=== PATIENT | male | born 1980 | race American Indian/Alaskan Native ===

== ENCOUNTER 2017-11-22 00:19 | Emergency (ER) | payer BC ==
[2017-11-22 00:34] VITALS: BMI 27.3
[2017-11-22 00:36] VITALS: O2SAT 98
--- NOTE | 2017-11-22 02:28 | ED PDOC ---
Arrival/HPI - General Chief Complaint: Cough, Cold, Congestion Time Seen by Provider: 11/22/17 00:37 Historian: Patient - History of Present Illness Narrative History of Present Illness (Text): 11/22/17 02:20 37 year old male, with no known past medical history, presents to the emergency department complaining of coughing associated with vomiting. Patient reports the cough for several months and seen his PMD twice in the past week. Patient was given antibiotics and steroids with moderate improvement. Patient reports the cough returned with vomiting x2 today, once with reportedly slight blood, and diarrhea for several days. He reports vomiting after the cough with no nausea. Patient denies history of asthma and denies smoking. Patient reports a sore throat after vomiting, but denies any fever, chills, chest pain, shortness of breath, nausea, urinary symptoms, back pain, neck pain, headache, dizziness, or any other complaints. 11/22/17 03:50 11/22/17 03:51 Time/Duration: Other Symptom Onset: Gradual Symptom Course: Unchanged Activities at Onset: Light Past Medical History - Provider Review Nursing Documentation Reviewed: Yes - Psychiatric Hx Substance Use: No - Anesthesia Hx Anesthesia: No Family/Social History - Physician Review Nursing Documentation Reviewed: Yes Family/Social History: No Known Family HX Smoking Status: Never Smoked Hx Alcohol Use: No Hx Substance Use: No Allergies/Home Meds Allergies/Adverse Reactions: Allergies amoxicillin [From Augmentin] Adverse Reaction (Verified 11/22/17 01:05) RASH clavulanic acid [From Augmentin] Adverse Reaction (Verified 11/22/17 01:05) RASH Review of Systems - Physician Review All systems were reviewed & negative as marked: Yes - Review of Systems Constitutional: absent: Fevers, Other (Chills) Respiratory: Cough. absent: SOB Cardiovascular: absent: Chest Pain Gastrointestinal: Vomiting, Hematemesis. absent: Diarrhea, Nausea Musculoskeletal: absent: Back Pain, Neck Pain Neurological: absent: Headache, Dizziness Physical Exam Vital Signs Reviewed: Yes Vital Signs Temp Pulse Resp BP Pulse Ox 11/22/17 05:45 98.0 F 78 17 130/78 98 11/22/17 04:01 97.7 F 76 18 119/76 98 11/22/17 00:36 97.7 F 76 17 129/86 98 Temperature: Afebrile Blood Pressure: Normal Pulse: Regular Respiratory Rate: Normal Appearance: Positive for: Well-Appearing, Non-Toxic, Comfortable Pain Distress: None Mental Status: Positive for: Alert and Oriented X 3 - Systems Exam Head: Present: Atraumatic, Normocephalic Pupils: Present: PERRL Extroacular Muscles: Present: EOMI Conjunctiva: Present: Normal Mouth: Present: Moist Mucous Membranes Pharnyx: Present: ERYTHEMA (Mild ). No: EXUDATE, Strider Neck: Present: Normal Range of Motion Respiratory/Chest: Present: Clear to Auscultation, Good Air Exchange. No: Respiratory Distress, Accessory Muscle Use Cardiovascular: Present: Regular Rate and Rhythm, Normal S1, S2. No: Murmurs Abdomen: Present: Normal Bowel Sounds. No: Tenderness, Distention, Peritoneal Signs Back: Present: Normal Inspection Upper Extremity: Present: Normal Inspection. No: Cyanosis, Edema Lower Extremity: Present: Normal Inspection. No: Edema Neurological: Present: GCS=15, CN II-XII Intact, Speech Normal Skin: Present: Warm, Dry, Normal Color. No: Rashes Psychiatric: Present: Alert, Oriented x 3, Normal Insight, Normal Concentration Medical Decision Making ED Course and Treatment: 11/22/17 02:28 Impression: 37 year old male presents for vomiting after cough today with mild hematemsis and diarrhea for serval days. Differential Diagnosis included but are not limited to: Cough indicating mass VS Pneumonia VS Pleural Effusion VS Sarcoidosis Plan: -- CT Angio Chest PE Protocol -- EKG -- Labs -- Lidocaine 2% Viscous -- Reassess and disposition Progress Notes: 11/22/17 03:35 EKG shows NSR at [address]/t Changes. Normal axis. Normal EKG. QTC 425 QRS 92. Interpreted by me. EXAM: CT Angiography Chest With Intravenous Contrast Dictated and Authenticated by: Kimberly Randle MD 11/22/2017 4:32 AM IMPRESSION: Nonspecific bibasilar haziness. No focal infiltrate. 11/22/17 05:25 CT is neg for acute infiltrate, given that the patient has already been on two courses of antibiotics and he has no WBC count or fever do not think he would benefit from abx. will treat symptomatically with albuterol, tesselon and phenergan with codeine - Lab Interpretations Lab Results: 11/22/17 02:29 11/22/17 02:29 Lab Results 11/22/17 02:29: Sodium 137, Potassium 4.5, Chloride 101, Carbon Dioxide 27, Anion Gap 14, BUN 17, Creatinine 0.9, Est GFR ( Amer) > 60, Est GFR (Non- Af Amer) > 60, Random Glucose 105, Calcium 9.3, Troponin I 0.04 11/22/17 02:29: WBC 11.6 H, RBC 4.51, Hgb 14.1, Hct 38.5 L, MCV 85.4, MCH 31.3, MCHC 36.6, RDW 12.0, Plt Count 204, MPV 11.0, Gran % 50.1, Lymph % (Auto) 42.7 H , [place] % (Auto) 6.2 H, Eos % (Auto) 0.9 L, Baso % (Auto) 0.1, Gran # 5.80, Lymph # 5.0 H, [place] # 0.7 H, Eos # 0.1, Baso # 0.01 I have reviewed the lab results: Yes - RAD Interpretation Radiology Orders: 11/22/17 02:07 ANGIO CHEST PE PROTOCOL [CT] Stat - EKG Interpretation Interpreted by ED Physician: Yes Type: 12 lead EKG - Medication Orders Current Medication Orders: Discontinued Medications Lidocaine HCl (Lidocaine 2% Viscous) 15 ml PO ONCE ONE Stop: 11/22/17 02:10 Last Admin: 11/22/17 04:05 Dose: 15 ml - Scribe Statement The provider has reviewed the documentation as recorded by the Dre Ramey Provider Scribe Attestation: All medical record entries made by the Dre were at my direction and personally dictated by me. I have reviewed the chart and agree that the record accurately reflects my personal performance of the history, physical exam, medical decision making, and the department course for this patient. I have also personally directed, reviewed, and agree with the discharge instructions and disposition. Disposition/Present on Arrival - Present on Arrival Any Indicators Present on Arrival: No History of DVT/PE: No History of Uncontrolled Diabetes: No Urinary Catheter: No History of Decub. Ulcer: No History Surgical Site Infection Following: None - Disposition Have Diagnosis and Disposition been Completed?: Yes Diagnosis: Cough present for greater than 3 weeks Disposition: HOME/ ROUTINE Disposition Time: 05:27 Patient Plan: Discharge Condition: IMPROVED Discharge Instructions (ExitCare): Chronic Cough (ED) Prescriptions: Albuterol HFA [Ventolin HFA 90 mcg/actuation (8 g)] 2 puff IH [id number] #1 puff Benzonatate [Tessalon Perle] 100 mg PO BID PRN #20 capsule PRN Reason: Cough Promethazine/Codeine [Codeine/Promethazine 10 MG/5 Ml-6.25 MG/5 Ml] 5 ml PO Q6 PRN #100 udc PRN Reason: Cough Referrals: [facility], [Non-Staff] - Follow up with primary Marilu Melgar MD [Medical Doctor] - Follow up with primary Genaro Benito MD [Non-Staff] - Follow up with primary Forms: [facility] (German)
[2017-11-22 02:39] LABS: BASO # 0.01 K/mm3 (0.0-2.0); BASO % 0.1 % (0.0-3.0); EOS # 0.1 (0.0-0.7); EOS % 0.9 % (1.5-5.0); GRAN # 5.8 (1.4-6.5); GRAN % 50.1 % (50.0-68.0); HEMOGLOBIN 14.1 g/dL (14.0-18.0); LYMPH % 42.7 % (22.0-35.0); MEAN CELL VOLUME 85.4 fl (80.0-105.0); MEAN CORPUSCULAR HEMOGLOBIN 31.3 pg (25.0-35.0); MEAN CORPUSCULAR HGB CONC 36.6 g/dl (31.0-37.0); MONO # 0.7 (0.1-0.6); MONO % 6.2 % (1.0-6.0); RBC 4.51 10^6/uL (3.5-6.1); WHITE BLOOD COUNT 11.6 10^3/ul (4.5-11.0)
[2017-11-22 02:53] LABS: CALCIUM 9.3 mg/dL (8.4-10.5); GFR AFRICAN-AMERICAN > 60; GFR NON-AFRICAN AMERICAN > 60
[2017-11-22 03:09] LABS: BLOOD UREA NITROGEN 17 mg/dL (7-21)
[2017-11-22 03:14] LABS: TROPONIN I 0.04 ng/mL
[2017-11-22] MEDS ORDERED: Iohexol 350 MG/100 ML VIAL ONE (03:30)
--- NOTE | 2017-11-22 04:32 | CT ---
EXAM: CT Angiography Chest With Intravenous Contrast EXAM DATE/TIME: 11/22/2017 2:07 AM CLINICAL HISTORY: 37 years old, male; Signs and symptoms; Shortness of breath; Additional info: SOB cough TECHNIQUE: Axial computed tomographic angiography images of the chest with intravenous contrast using pulmonary embolism protocol. All CT scans at this facility use one or more dose reduction techniques, viz.: automated exposure control; ma/kV adjustment per patient size (including targeted exams where dose is matched to indication; i.e. head); or iterative reconstruction technique. MIP reconstructed images were created and reviewed. Coronal and sagittal reformatted images were created and reviewed. CONTRAST: 100 mL of [id number] administered intravenously. COMPARISON: No relevant prior studies available. FINDINGS: No pulmonary embolism. No aortic dissection or aneurysm. No pleural or pericardial effussions. There are faint groundglass opacities in the lower lungs at least partially dependent atelectasis. Early superimposed infectious or inflammatory process would be possible although felt unlikely. No focal infiltrate identified. IMPRESSION: Nonspecific bibasilar haziness. No focal infiltrate.
[2017-11-22 05:47] VITALS: BP 130/78; PULSE 78; RESP 17; TEMP 98
--- NOTE | 2017-11-22 14:47 | CARD ---
APPROVED REPORT EKG Measurement Heart [id number] MD [id number] <Conclusion> Normal sinus rhythm Normal ECG
== END 2017-11-22 05:47 | disposition home or self-care (01) ==
LOC: ED 00:19
DX: R05 Cough (principal)
CPT/HCPCS: 71275; 80048; 84484; 85025; 93005; 99283; Q9967